=== PATIENT | female | born 1990 | race Caucasian/White ===

== ENCOUNTER 2016-10-19 07:37 | Emergency (ER) | payer SELFPAY ==
[~2016-10-19] VITALS: Ht 162.6 cm; Wt 82.0 kg
[2016-10-19 09:42] VITALS: BP 138/86
== END 2016-10-19 11:30 | disposition home or self-care (01) ==
LOC: ER 08:40
DX: M25.562 Pain in left knee (principal); W01.0XXA Fall on same level from slipping, tripping and stumbling without subsequent striking against object, initial encounter; Y92.018 Other place in single-family (private) house as the place of occurrence of the external cause
CPT/HCPCS: 73562; 81025; 99284; L1830

== ENCOUNTER 2017-03-08 17:03 | Emergency (ER) | payer SELFPAY ==
[~2017-03-08] VITALS: Ht 152.4 cm; Wt 82.0 kg
[2017-03-08] MEDS ORDERED: DEXAMETHASONE 10MG/ML 1ML VIAL IM ONE (22:45)
[2017-03-08] MEDS ORDERED: KETOROLAC 60MG/2ML VIAL IM ONE (22:45)
[2017-03-09 00:36] VITALS: BP 128/69
== END 2017-03-09 00:37 | disposition home or self-care (01) ==
LOC: ER 17:03
DX: J02.9 Acute pharyngitis, unspecified (principal); R59.0 Localized enlarged lymph nodes
CPT/HCPCS: 96372; 99284; J1100; J1885; Z7610

== ENCOUNTER 2022-02-25 16:31 | Emergency (ER) | payer MEDICAID ==
[~2022-02-25] VITALS: Ht 154.9 cm; Wt 78.0 kg
[2022-02-25 16:42] VITALS: BP 155/89
[2022-02-25] MEDS ORDERED: CEPH500T MT (19:26)
[2022-02-25] MEDS ORDERED: DIPH25CA83 MT (19:26)
== END 2022-02-25 19:51 | disposition home or self-care (01) ==
LOC: ER 16:31
DX: S50.862A Insect bite (nonvenomous) of left forearm, initial encounter (principal); L03.114 Cellulitis of left upper limb; W57.XXXA Bitten or stung by nonvenomous insect and other nonvenomous arthropods, initial encounter; Y93.89 Activity, other specified; Y92.018 Other place in single-family (private) house as the place of occurrence of the external cause
CPT/HCPCS: 99281

== ENCOUNTER 2023-08-10 07:19 | Emergency (ER) | payer MEDICAID ==
[~2023-08-10] VITALS: Ht 154.9 cm; Wt 80.0 kg
[~2023-08-10 07:19] MED LIST: CEPH500T MT; DIPH25CA83 MT
[2023-08-10 07:27] VITALS: O2SAT 98
[2023-08-10] MEDS ORDERED: BENZ100C86 MT (11:01)
[2023-08-10 11:10] VITALS: BP 130/82; PULSE 78; RESP 18; TEMP 98.4
== END 2023-08-10 11:11 | disposition home or self-care (01) ==
LOC: ER 07:19
DX: R05.9 Cough, unspecified (principal); Z20.822 Contact with and (suspected) exposure to COVID-19
CPT/HCPCS: 71046; 81025; 87426; 87804; 99284